=== PATIENT | male | born 1940 | race Caucasian/White ===

== ENCOUNTER 2020-06-09 10:51 | Outpatient (RCR) | payer MEDICARE, OTHER, SELFPAY | END 2020-06-09 23:59 | LOC: IMMUN 10:51 | PROVIDERS: PCP Internal Medicine; Visit Provider Family Medicine | DX: Z23 Encounter for immunization (principal) | CPT/HCPCS: 0011A; 0012A; 91301 ==

== ENCOUNTER 2020-11-08 11:06 | Emergency (ER) | payer MEDICARE, OTHER, SELFPAY ==
[2020-11-08 11:06] VITALS: BP 139/90; PULSE 61; RESP 16; TEMP 36.4; O2SAT 97; BMI 27.2
--- NOTE | 2020-11-08 11:29 | EX.ED.VIS.PS ---
HPI HPI - Psych History of Present Illness Chief Complaint: Mental Health Informant: patient Narrative Narrative: 79-year-old male presents to the emergency department with anxiety. He states that 1 month ago he keyed a car out of anger. He states that 2 weeks ago he was cited for it and has been working with an commercial litigation attorney. He states that he has been so on edge and dwelling on this matter that he has lost 10 pounds in the past week. He states that he tried to make an appointment at the counseling center but it got canceled and he did not know where else to go so he came here. Counseling center did call over and states that he was there doing an intake but was too wound up and said he needed to come to the emergency department for meds. He makes home wine and states he only has about 2 glasses a day and that amount has not changed during the past month. He states he has brief thoughts of harming himself but states he needs to see the light at the end of the tunnel and he has no current plan or current thoughts of harming himself. [facility] Medical History (Updated 11/08/20 @ 12:[address] Barrett Osman DO) BPH (benign prostatic hyperplasia) Hypercholesterolemia Home Medications lorazepam [Ativan] 0.5 mg PO TID PRN #15 tab 11/08/20 [Rx Last Taken Unknown] Allergy/AdvReac Type Severity Reaction Status Date / Time No Known Allergies Allergy Verified 11/08/20 11:11 Social History (Updated 11/08/20 @ 11:[address] Barrett Osman DO) Smoking Status: Unknown if ever smoked substance use type: does not use ROS ROS ED Constitutional Constitutional ED: Denies chills or weight loss Eyes Eyes: Denies change in vision or diplopia ENT ENT ED: Denies ear pain, rhinorrhea or sore throat Cardiovascular Cardiovascular: Denies chest pain, orthopnea, palpitations or racing heartbeat Respiratory/Chest Respiratory/Chest: Denies cough, dyspnea or orthopnea Gastrointestinal Gastrointestinal: Denies abdominal pain, diarrhea, nausea or vomiting Genitourinary Genitourinary ED: Denies dysuria, hematuria or urinary frequency Musculoskeletal Musculoskeletal: Denies arthralgias or myalgias Integumentary Denies abscess or rash Neurologic Neurologic: Denies headache(s) or weakness Psychiatric Psychiatric: Reports anxiety, depression and suicidal thoughts; Denies suicidal ideation Endocrine Endocrinology: Denies polydipsia, polyphagia or polyuria Allergic/Immunologic Allergic/Immunologic ED: Denies mouth swelling, tongue swelling or urticaria EXAM Physical Exam Const Vital Signs: 11/08/20 11:06 Temperature 97.6 F L Temperature Source Temporal Pulse Rate 61 Respiratory Rate 16 Blood Pressure 139/90 H Blood Pressure Mean 106 Pulse Ox 97 Oxygen Delivery Method Room Air Positive well nourished and well developed General Appearance ED: well developed HEENT Reports normocephalic, head/scalp atraumatic and moist mucous membranes Eyes PERRL and EOMs intact bilaterally Neck no lymphadenopathy, supple and no JVD Resp normal respiratory effort and clear to auscultation bilaterally Cardio regular rate, regular rhythm and no murmurs GI normal to inspection, nondistended, normoactive bowel sounds and non-tender Palpation: soft Back/Spine no CVA tenderness and normal ROM Extremity normal to inspection General Extremety ED: Negative for edema General Extremity: Negative for edema Neuro oriented x3 and CN's II-XII intact bilaterally Sensorium / Orientation: alert Motor Exam: strength 5/5 throughout Psych mental status grossly normal Psych Narrative: Patient does appear very anxious. He denies any current thoughts of suicide. Self-deprecating attitude. Mood & Affect: depressed; Negative for tearful Skin no rashes or lesions noted and no wounds MDM MDM MDM Narrative Medical decision making narrative: Patient was assessed by mold loft worker. They note again that he is not suicidal or homicidal. I gave the patient a dose of Ativan here. He is going to be assessed by intake at counseling center the next couple days. I can write for some Ativan to have at home. Do not think at this time he needs to be admitted into a psychiatric facility. Patient likes this plan. Discharge Plan Triage Chief Complaint: Mental Health ED Provider: Barrett Osman Dx/Rx/DC Orders Clinical Impression: Anxiety Instructions: ED Panic Attack Prescriptions: New lorazepam [Ativan] 0.5 mg tablet 0.5 mg PO TID PRN (Reason: anxiety) Qty: 15 RF: 0 Primary Care Provider: Rony Gerber Referrals: Rony Gerber MD [Primary Care Provider] - Disposition Disposition: Home, Self Care
--- NOTE | 2020-11-08 12:00 | CM.ED ---
SOCIAL WORK ASSESSMENT Referral Source: Dr. Osman Reason for Consult: Mental Health Chief Compliant: Patient presents with increased anxiety Marital/Social History: Single Living Situation: Home alone Support/Resources: [facility] History: Patient reports served 5.5 years in [employer] Education and Employment History: Bachelor's Degree, Retired Mental Health Treatment/History: Anxiety. Patient states is in the process of establishing self with [facility]. Patient states was to have appointment today that was canceled. Patient states appointment has been rescheduled for , 11/10/20. Triggers/Stressors: increase in anxiety Coping Skills: walking Abuse Issues: Patient denies any history of emotional, physical, or sexual abuse. Substance Abuse History: Patient admits to use of alcohol. 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 Risk to Self/Others: Suicidal- Patient denies any suicidal ideation, plan. or intent. Homicidal- Patient denies any homicidal ideation. Violence- Patient reports recently keyed some cars. Patient states had to appear in court and disability attorney is recommending anger management classes. Patient states has apologized and continues to apologize for his actions. Mental Status Exam: Orientation- A&OX3 Memory: fair Appearance/General Behavior: clean/appropriate Mood/Affect: anxious Communication Pattern: responds to questions Thought Process: linear, future oriented General Intellectual Functioning: Average Judgement: good Assessment: Prior to patient's arrival, received call from [facility] with Crisis. Per [facility], patient had appointment scheduled for today for diagnostic assessment. Appointment had to be canceled and [facility] was unable to contact patient by phone. Patient arrived for appointment and was anxious. [facility] reports appointment has been rescheduled for . Patient had informed [facility] he was very anxious and needed to go to the ER. Met with patient in room. Introduced role and reason for referral. Patient states increase in anxiety and reports primary care physician is on vacation. Patient reports has appointment scheduled with [facility] and it was canceled. Patient wanting to follow up with psychiatry to be started on medication for anxiety. Patient denies any suicidal or homicidal ideation. Patient reports has just been having a lot of anxiety. Patient reports has been having issues with sleeping and has bought over the counter medication to assist with sleep. Patient reports it helped for a little while. Patient states has lost around 10lbs and does not have much of an appetite. Patient reports attempted to discuss with PCP, however he is on vacation. Patient reports will be following up with [facility] to get established with psychiatry. Patient states recent trouble due to keying cars. Patient states normally walks every day and cars had been blocking. Patient reports became angry with situation and acted out of character. Patient states has apologized and is making amends. Patient reports disability attorney is recommending anger management classes. Much emotional support and education provided. Collaboration with Dr. Osman. Patient does not meet criteria for inpatient psych. Patient wanting to follow up with [facility] and has been educated on [facility]. Patient requesting medication to help with anxiety. Dr. Osman reports will write prescription. Plan: Home with follow up with [facility] on , 11/10/20 at 11am YAZAN Kovacs, [place]
[2020-11-08] MEDS: LORazepam 0.5 MG Tablet PO (13:06)
[2020-11-08 13:13] VITALS: BP 157/85; PULSE 91; RESP 15; O2SAT 97
== END 2020-11-08 13:13 | disposition home or self-care (01) ==
PROVIDERS: Emergency Provider Emergency Medicine; PCP Internal Medicine
DX: F41.9 Anxiety disorder, unspecified (principal)
CPT/HCPCS: 99282